=== PATIENT | female | born 1960 | race Caucasian/White ===

== ENCOUNTER 2019-07-01 05:34 | Inpatient (IN) ==
--- NOTE | 2019-06-18 14:48 | Anesthesiology Consultation ---
Date of Service June 18, 2019 Assessment & Plan (1) Encounter for pre-operative examination: Chart Review Chart Review: Acceptable Risk for Surgery (pending CXR results ), Pending: Refer to Additional Notes / Consult section (CXR ) and Patient NOT seen in Pre Admission Testing Prior to left TKA surgery- patient did have abnormal CXR/chest CT scan. Will update CXR prior to surgery to ensure lungs stable. Left TKA 02/19/18= Done under MAC with SAB- level L3-4- no issues noted per anesthesia record History Surgery Operation Date: 07/01/19 10:35 Proposed Procedures p Right Total Knee Arthroplasty - Jose Barrera DO Height/Weight Height: 5 ft 6.5 in Weight: 95.254 kg Allergies Allergy/AdvReac Type Severity Reaction Status Date / Time No Known Allergies Allergy Verified 06/18/19 13:15 Medications Home Medications Medication Instructions Recorded Confirmed Last Taken acetaminophen [Pain Reliever] 1,000 mg PO UD PRN 06/18/19 06/18/19 Unknown famotidine [Pepcid] 20 mg PO UD PRN 06/18/19 06/18/19 Unknown Past Medical History Medical History (Updated 06/18/19 @ 15:37 by Debbie García PA-C) Abnormal CXR Prior to 2018 TKA- seen by pulm- presumed emphysema and likely ILD Acid reflux INFREQUENT Hiatal hernia PT NOT SURE Osteoarthritis HX R KNEE INJECTION FEW MONTHS AGO Past Surgical History Surgical History History of carpal tunnel surgery LEFT History of total left knee replacement Hx of cholecystectomy WITH APPENDECTOMY Hx of unilateral salpingectomy RIGHT Hx of vaginal surgery Mass removed Social History Smoking Status: Former smoker Smoking cigarettes per day: 10 Do You Dip or Chew Tobacco: No Smoking End Date: 2 YRS AGO Hx Alcohol Use: No Alcohol type: wine alcohol intake frequency: holidays/special occasions only Hx Substance Use: No substance use type: does not use Testing Laboratory Results 06/16/19= WBC: 10.80 H/H: 15.9/48.5 PLATELETS: 475 UA: Small blood and esterase. URINE CULTURE: negative Electrocardiogram Date: 06/16/19 Findings: + NSR @ (91)
--- NOTE | 2019-06-24 13:47 | History & Physical Report ---
Date of Service June 24, 2019 date of surgery: 07-01-19 Assessment & Plan (1) Arthritis of right knee: Further care discussed with patient and at this point in time has failed conservative measures and would like to proceed with a right total knee replacement. Plan on discharge will be home with home health physical therapy. DVT prophalaxis with TEDs, SCDs and will also place on aspirin 81 mg p.o. b.i.d. for a month postop. Patient will have follow up appointment in our office two weeks post op for staple/suture removal and re-evaluation. Patient otherwise has no other questions or concerns. History of Present Illness Chief Complaint: Right knee pain Primary Care Provider: Justin Caro [place] is a 58 year old female who complains of Right knee pain, presents for pre-op evaluation prior to a Right total knee replacement by dr Barrera at [facility]. She complains of pain, crepitus, decreased range of motion, instability and stiffness in the right knee. she states that the symptoms have been chronic and non-traumatic. [place] states that the symptoms occur constantly with intermittent worsening. Currently the patient states that the symptoms are moderate-severe. The pain is described as aching, sharp and throbbing. The symptoms occur continuously. The symptoms are aggravated by ascending stairs, daily activities, first steps while awake walking. Prior NSAIDs include Aleve and IBU. She has been treated with previous visco injections and cortisone injections in the past without much relief, as well as participated in clinical trials. Allergies Allergy/AdvReac Type Severity Reaction Status Date / Time No Known Allergies Allergy Verified 06/18/19 13:15 Home Medications Home Medications Medication Instructions Recorded Confirmed Type acetaminophen [Pain Reliever] 1,000 mg PO UD PRN 06/18/19 06/18/19 History famotidine [Pepcid] 20 mg PO UD PRN 06/18/19 06/18/19 History Past Med/Surg History Medical History Abnormal CXR Prior to 2018 TKA- seen by pulm- presumed emphysema and likely ILD Acid reflux INFREQUENT Hiatal hernia PT NOT SURE Osteoarthritis HX R KNEE INJECTION FEW MONTHS AGO Surgical History History of carpal tunnel surgery LEFT History of total left knee replacement Hx of cholecystectomy WITH APPENDECTOMY Hx of unilateral salpingectomy RIGHT Hx of vaginal surgery Mass removed Family History (Updated 06/24/19 @ 13:44 by Sean Luciano PA-C) Unknown No family history of adverse response to anesthesia Social History Preferred Language: Yoruba Communication Ability: Effective 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 Beliefs That Will Affect Care: None Current Living Situation: Spouse Other Information That Helps Us Care for You: No Feels Safe at Home: Yes Smoking Status: Former smoker Cigarettes Per Day: 10 ; Do You Dip or Chew Tobacco: No ; Smoking End Date: 2 YRS AGO ; Hx Alcohol Use: No Hx Substance Use: No Review of Systems Review of Systems: All systems reviewed & are unremarkable except as noted in HPI & below Constitutional: no fever, no chills and no sweats Respiratory: no cough and no dyspnea Cardiovascular: no chest pain, no dyspnea and no orthopnea Gastrointestinal: no abdominal pain, no nausea and no vomiting Musculoskeletal: as per Subjective / HPI Physical Exam Physical Exam: Ht: 5ft 6in Wt: 95.3kg BP: 130/76 Pulse: 60 Constitutional: WD/WN, vitals as above no acute distress Respiratory: normal respiratory effort, lungs clear to auscultation no respiratory distress, no labored breathing and does not use accessory muscles Cardiovascular: RRR, no murmur, no edema Gastrointestinal (Abdomen): normal bowel sounds, soft, nontender, no hepatosplenomegaly Musculoskeletal: Knee: + knee abnormal to inspection (Right knee), + effusion (+1 effusion), + surgical incision (well healed portals), + limited ROM of knee (ROM 0/3/110), + knee ROM with crepitation, + joint line tenderness (medial joint line) and + Wiley's sign positive; no deformity, no skin erythema, no ecchymosis, no valgus laxity, no varus laxity, anterior drawer test negative, Adela's sign negative and pivot shift test negative Results & Data Diagnostic Findings right knee xray showing complete loss joint space medial compartment with overall varus alignment, there is also narrowing of the lateral compartment and patellofemoral joint. there is osteophyte formation, subchondral sclerosis noted, no loose bodies, no acute bony pathology. overall impression tricompartmental degenerative changes to the right knee.
[2019-07-01] MEDS ORDERED: LR 500ML BOLUS, THEN 15ML/HR IV SCH (06:00)
[2019-07-01] MEDS ORDERED: METOCLOPRAMIDE HCL 10 MG TABLET PO SCH (06:00)
[2019-07-01] MEDS ORDERED: ACETAMINOPHEN 500 MG TAB PO SCH (06:00)
[2019-07-01] MEDS ORDERED: FAMOTIDINE 20 MG TAB PO SCH (06:00)
[2019-07-01] MEDS ORDERED: dexAMETHasone 4 MG TAB PO SCH (06:00)
[2019-07-01] MEDS ORDERED: TRANEXAMIC ACID 1,000 MG **IV Intra-op IV SCH (06:00)
[2019-07-01] MEDS ORDERED: CeleBREX 200 MG CAP PO SCH (06:00)
[2019-07-01] MEDS ORDERED: CEFAZOLIN 2000MG 2,000 MG/15 ML SYR IV SCH (06:00)
[2019-07-01] MEDS ORDERED: ROPIVACAINE 0.5% HCL/PF 150 MG, BUPIVACAINE 0.5% MPF 30 ML, EPINEPHrine 30MG/30ML (OR U... INFIL SCH (06:00)
[2019-07-01] MEDS ORDERED: GABAPENTIN 600 MG DOSE PO SCH (06:00)
[2019-07-01] MEDS ORDERED: TRANEXAMIC ACID 1,000 MG **IV Pre-op IV SCH (06:00)
[2019-07-01] MEDS ORDERED: BUPIVACAINE/EPINEPHRINE 0.25% 1:200,000 30 ML VIAL ONE (06:23)
[2019-07-01] MEDS ORDERED: DEXAMETHASONE SOD INJ 4 MG/ML VIAL ONE ×2 (06:23→08:51)
[2019-07-01] MEDS ORDERED: BUPIVACAINE 0.5 % 5 MG/1 ML PF 10ML VIAL ONE (06:23)
[2019-07-01] MEDS ORDERED: PROPOFOL IV EMULSION 10 MG/ML 20 ML VIAL IV ONE (06:35)
[2019-07-01] MEDS ORDERED: MIDAZOLAM HCL 1 MG/ML 2ML VIAL ONE ×3 (06:35→07:44)
[2019-07-01] MEDS ORDERED: fentaNYL citrate 100 MCG/2 ML VIAL ONE ×2 (06:35→08:06)
[2019-07-01] MEDS ORDERED: LIDOCAINE HCL 2% 2 ML VIAL/AMP(20MG/ML) INFIL ONE (06:35)
[2019-07-01] MEDS ORDERED: ONDANSETRON INJ 2 MG/ML 2 ML VIAL ONE (06:35)
[2019-07-01] MEDS ORDERED: BACITRACIN INJ 50,000 UNIT VIAL ONE (07:02)
[2019-07-01] MEDS ORDERED: ORTHO JOINT ANESTHETIC ONE (07:02)
[2019-07-01] MEDS ORDERED: ONDANSETRON INJ 2 MG/ML 2 ML VIAL IV PRN ×2 (07:22→10:27)
[2019-07-01] MEDS ORDERED: ePHEDrine sulfate 50 MG/ML AMP IV PRN (07:22)
[2019-07-01] MEDS ORDERED: ATROPINE SULFATE 0.1 MG/ML 10ML SYR IV PRN (07:22)
[2019-07-01] MEDS ORDERED: fentaNYL citrate 100 MCG/2 ML VIAL IV PRN (07:22)
--- NOTE | 2019-07-01 07:33 | History & Physical Bridge Note ---
Date of Service July 01, 2019 History & Physical Bridge Note I have examined the patient, reviewed the History & Physical and in the interval since the performance of the History & Physical I have noted the following changes of clinical significance: no changes noted
--- NOTE | 2019-07-01 08:36 | Operative Report ---
Post Operative Report Pre & Post Diagnosis Operation Date: 07/01/19 07:15 Pre-Op Diagnosis: Osteoarthritis of Right Knee Post-Op Diagnosis: Osteoarthritis of Right Knee I identified the patient and participated in the time-out.: Yes Procedure Operation Date: 07/01/19 07:15 Actual Procedures p Right Total Knee Arthroplasty(Right) utilizing Capellan & NephCigital journey to non- block total knee arthroplasty size 5 femur 4 tibia 12 polyethylene 32 oval patella- Jose Barrera DO Surgeon Jose Barrera DO Retail Sales Manager ANNA Preston Estimated Blood Loss 5 Findings Consistent with Post-Op Diagnosis Patient presents with severe end-stage DJD varus alignment of the right knee no response to conservative management the patient has subchondral sclerosis marginal osteophytes [id number] eburnated bone moderate to large effusion varus alignment of the right knee after failing attempts at conservative management presents for total knee arthroplasty Specimens Bone and cartilage Drains Medium bore Hemovac Anesthesia Type General Regional Complications none Disposition Accompanied Patient To Recovery: No Disposition: Recovery Room Indications Patient presents after failed attempted conservative management clinic physical therapy anti-inflammatories relative rest activity modification corticosteroid injections Visco supplementation relative rest the above intraoperative findings no time surgery. Description of Procedure After proper prepping and draping of the Right lower extremity anterior midline incision was made over the region of the extensor extensor mechanism after meticulous hemostasis was obtained and maintained in subcutaneous tissues a medial parapatellar incision was made The patella was subluxed lateralward the medial lateral gutter were cleaned from any hypertrophic synovitis and scar tissue of the distal femoral block was placed and the distal femoral osteotomy cut was made subsequently the chamfers anterior and posterior osteotomy cuts were made utilizing the 4-in-1 block the tibia was subsequently subluxed anteriorward medial and ateral meniscal remnants were excised in their entirety remnants of the anterior and posterior cruciate ligaments were excised in their entirety excellent exposure of the proximal tibia was obtained the tibial osteotomy guide was placed on the proximal tibial osteotomy cut was made once again the knee was irrigated with copious amounts of sterile saline solution the patella was subsequently everted lateralward thickened scar tissue around the patella was removed the patella was subsequently cut utilizing a freehand technique and was drilled prepared for final preparation and placement of patella socially flexion-extension gaps were checked and the equal and symmetric trials were placed to the appropriate femoral and tibial trials with poly-spacer being placed for equal flexion and extension gaps and full range of motion including extension to 0 and flexion to 140 the trial components after having been taken to recovery range of motion was subsequently removed meticulous hemostasis was obtained and maintained subsequently a knee block injection of joint cocktail including ropivacaine 0.5% 150 mg. Bupivacaine 0.5% epinephrine 1-200,030 mL's toradol 30 mg dexamethasone 4 mg ketamine 10 mg clonidine 100 mi crograms normal saline solution 30 mg was infiltrated into the soft tissues of the posterior knee medial lateral gutters and periosteal synovium special attention was paid to protect neurovascular structures at all times subsequently trial components having been removed the knee was irrigated with sterile saline solution. debris was removed the proximal tibia was subsequently prepared and was made ready for the placement of the tibial component tibial component was also cemented and tamped into position the femoral component was subsequently placed and cemented in the position the patellar component was subsequently cemented in position because hemostasis once again obtained and maintained wound having been thoroughly irrigated with debridement and debridement lavage was performed as well as a medial parapatellar incision closed with #1 Vicryl in interrupted fashion subcutaneous was closed with #2 Vicryl skin was closed with skin clips. PA-C was necessary for prepping and drapping as well as wound closure of deep fascia Sub cutaneous tissue and skin and was necessary for the case. A sterile compressive dressing was placed patient was taken to recovery in stable condition of report dictated by Bruce I attest to the content of the Intraoperative Record and any orders documented therein. Any exceptions are noted below. I attest to the content of the Intraoperative Record and any orders documented therein. Any exceptions are noted below.
--- NOTE | 2019-07-01 09:45 | XRay Report ---
XR knee RT 1 or 2V routine CLINICAL HISTORY: Surgical Post Op DEGENERATIVE ARTHRITIS COMPARISON: January 2018 DISCUSSION: There are postsurgical changes of a total right knee arthroplasty. The femoral and tibial components appear well seated. There is an overlying surgical drain. There is gas present within the soft tissues consistent with recent surgery. The lateral joint compartment appears somewhat wider th an the medial joint compartment, perhaps secondary to patient positioning. IMPRESSION: Postsurgical changes of a total right knee arthroplasty. ACT 112: Negative or not required by law. Electronically signed by: Maxwell Burt M.D. 07/01/2019 9:43 AM
--- NOTE | 2019-07-01 10:19 | Anesthesiology Progress Note ---
Date of Service July 01, 2019 Anesthesia Post Procedure Vital Signs Vital Signs: Temp Pulse Pulse Resp BP BP Pulse Ox 07/01/19 09:45 37.1 C 89 16 135/79 98 07/01/19 09:35 37.1 C 91 H 16 142/88 H 98 07/01/19 09:25 88 16 124/82 98 07/01/19 09:18 37.9 C H 102 H 16 147/86 H 95 07/01/19 06:13 36.8 C 78 20 172/105 H 98 Transfer of Care Handoff Completed per policy Notes Mental Status: alert / awake / arousable Patient Amnestic to Procedure: Yes Nausea / Vomiting: adequately controlled Pain: adequately controlled Airway Patency, RR, SpO2: stable & adequate BP & HR: stable & adequate Hydration State: stable & adequate Anesthetic Complications: no major complications apparent
[2019-07-01] MEDS ORDERED: HYDROmorphone INJ 1 MG/ML SYRINGE IV PRN (10:27)
[2019-07-01] MEDS ORDERED: MAGNESIUM HYDROXIDE SUSP 30 ML UDC PO PRN (10:27)
[2019-07-01] MEDS ORDERED: bisacodyL 10 MG SUPP PR PRN (10:27)
[2019-07-01] MEDS ORDERED: METOCLOPRAMIDE HCL INJ 5 MG/ML 2 ML VIAL IV PRN (10:27)
[2019-07-01] MEDS ORDERED: NALOXONE HCL 0.4 MG/1 ML VIAL/CARP IV PRN (10:27)
[2019-07-01] MEDS: SODIUM CHLORIDE 0.9% 1000ML 1,000 ML IV SCH ×2 (11:00→21:47)
[2019-07-01] MEDS: KETOROLAC 30 MG/ML VIAL IV SCH ×3 (11:01→22:06)
[2019-07-01] MEDS: ACETAMINOPHEN 500 MG TAB PO SCH ×2 (14:18→21:48)
[2019-07-01] MEDS: CEFAZOLIN 2000MG 2,000 MG/15 ML SYR IV SCH ×2 (15:22→23:24)
[2019-07-01] MEDS: ASPIRIN 81 MG ECTAB PO SCH (21:47)
[2019-07-01] MEDS: DOCUSATE SODIUM 100 MG CAP PO SCH (21:48)
[2019-07-01] MEDS: SENNA 8.6 MG TAB PO SCH (21:48)
[2019-07-02] MEDS: ACETAMINOPHEN 500 MG TAB PO SCH ×3 (05:08→21:12)
[2019-07-02] MEDS: KETOROLAC 30 MG/ML VIAL IV SCH (05:08)
[2019-07-02 05:32] LABS: Hematocrit (blood only) 36.5 % (37-47); Mean Corpuscular Hemoglobin 30.7 pg (25-34); Mean Corpuscular Hgb Conc 32.9 g/dL (32-36); Mean Corpuscular Volume 93.4 fL (80-100); Mean Platelet Volume 9.7 fL (7.4-10.4); Platelet Count 386 K/uL (130-400); RDW Coefficient of Variation 13.6 % (11.5-14.5); RDW Standard Deviation 46.7 fL (36.4-46.3); Red Blood Count 3.91 M/uL (4.2-5.4); White Blood Count 18.24 K/uL (4.8-10.8)
[2019-07-02 06:09] LABS: Calcium 8.4 mg/dl (8.5-10.1); Creatinine Clr Calc Pharmacy 113.7 ml/min; Est GFR (African American) 111.8; Est GFR (Non-African American) 96.5
--- NOTE | 2019-07-02 07:23 | Anesthesiology Progress Note ---
Date of Service July 02, 2019 Anesthesia Post Procedure Vital Signs Vital Signs: Temp Pulse Pulse Pulse Pulse Resp BP 07/02/19 03:08 36.5 C 67 15 07/01/19 23:48 36.7 C 69 14 07/01/19 19:12 36.9 C 78 16 07/01/19 15:08 36.8 C 70 16 119/79 07/01/19 13:07 86 16 126/85 07/01/19 12:08 84 16 135/91 07/01/19 11:07 36.5 C 85 16 126/85 07/01/19 10:31 87 16 132/84 07/01/19 10:10 36.6 C 90 16 126/87 07/01/19 09:45 37.1 C 89 16 135/79 07/01/19 09:35 37.1 C 91 H 16 142/88 H 07/01/19 09:25 88 16 124/82 07/01/19 09:18 37.9 C H 102 H 16 147/86 H BP Pulse Ox 07/02/19 03:08 108/70 96 07/01/19 23:48 112/76 93 07/01/19 19:12 116/81 95 07/01/19 15:08 97 07/01/19 13:07 99 07/01/19 12:08 99 07/01/19 11:07 99 07/01/19 10:31 99 07/01/19 10:10 98 07/01/19 09:45 98 07/01/19 09:35 98 07/01/19 09:25 98 07/01/19 09:18 95 Pain Intensity Right Knee: Pain Intensity: 0 Notes Mental Status: alert / awake / arousable Patient Amnestic to Procedure: Yes Nausea / Vomiting: adequately controlled Pain: adequately controlled Airway Patency, RR, SpO2: stable & adequate BP & HR: stable & adequate Hydration State: stable & adequate Neuraxial Anesthesia: sensory block resolved Anesthetic Complications: no major complications apparent
[2019-07-02] MEDS: ASPIRIN 81 MG ECTAB PO SCH ×2 (07:42→21:12)
[2019-07-02] MEDS: DOCUSATE SODIUM 100 MG CAP PO SCH ×2 (07:42→21:12)
[2019-07-02] MEDS: MULTIVITAMIN TAB PO SCH (07:42)
[2019-07-02] MEDS: CeleBREX 200 MG CAP PO SCH ×2 (07:42→21:12)
--- NOTE | 2019-07-02 08:07 | Orthopedic Progress Note ---
Date of Service July 02, 2019 Assessment & Plan (1) Arthritis of right knee: Postop day 1 status post right total knee arthroplasty Leukocytosis-likely due to surgical stress or preoperative steroids. Patient currently asymptomatic. PT/OT protocols. Weightbearing as tolerated. DVT prophylaxis with aspirin p.o. twice daily, SCDs, YOUNG maddox Continue current pain regimen. DC planning-patient planning for home health services upon discharge. Admission and Anticipated Discharge Date Admission Date: July 01, 2019 Subjective Postop day 1 Patient currently sitting up in her chair at the bedside. No complaints this morning. Pain is controlled. She denies any shortness of breath, chest pain, lightheadedness. Physical Exam Physical Exam: Dressings are clean, dry, and intact. Calves are soft and nontender. Neurovascular is intact. Toes are mobile with good dorsiflexion and plantarflexion of the right ankle. Hemovac drainage was 100 mL from the previous shift. Results & Data ([facility]) Vital Signs (Past 12 Hours) Vital Signs Temp Pulse Resp BP Pulse Ox 07/02/19 03:08 36.5 C 67 15 108/70 96 07/01/19 23:48 36.7 C 69 14 112/76 93 Laboratory Results Laboratory Results WBC 18.24 K/uL (4.8-10.8) H 07/02/19 04:48 RBC 3.91 M/uL (4.2-5.4) L 07/02/19 04:48 Hgb 12.0 g/dL (12.0-16.0) 07/02/19 04:48 Hct 36.5 % (37-47) L 07/02/19 04:48 MCV 93.4 fL (80-100) 07/02/19 04:48 MCH 30.7 pg (25-34) 07/02/19 04:48 MCHC 32.9 g/dL (32-36) 07/02/19 04:48 RDW Std Deviation 46.7 fL (36.4-46.3) H 07/02/19 04:48 RDW Coeff of Anitra 13.6 % (11.5-14.5) 07/02/19 04:48 Plt Count 386 K/uL (130-400) 07/02/19 04:48 MPV 9.7 fL (7.4-10.4) 07/02/19 04:48 Sodium 141 mmol/L (136-145) 07/02/19 04:48 Potassium 4.0 mmol/L (3.5-5.1) 07/02/19 04:48 Chloride 111 mmol/L (98-107) H 07/02/19 04:48 Carbon Dioxide 26 mmol/L (21-32) 07/02/19 04:48 Anion Gap 4.0 (3-11) 07/02/19 04:48 BUN 17 mg/dl (7-18) 07/02/19 04:48 Creatinine 0.65 mg/dl (0.6-1.2) 07/02/19 04:48 Est Cr Clr Drug Dosing 113.7 ml/min 07/02/19 04:48 Est GFR ( Amer) 111.8 07/02/19 04:48 Est GFR (Non-Af Amer) 96.5 07/02/19 04:48 BUN/Creatinine Ratio 27.0 (10-20) H 07/02/19 04:48 Glucose 124 mg/dl (70-99) H 07/02/19 04:48 Calcium 8.4 mg/dl (8.5-10.1) L 07/02/19 04:48 Blood Type A Positive 07/01/19 06:02 Antibody Screen NEGATIVE 07/01/19 06:02
[2019-07-02] MEDS: SENNA 8.6 MG TAB PO SCH (21:13)
[2019-07-03] MEDS: ACETAMINOPHEN 500 MG TAB PO SCH (06:14)
[2019-07-03] MEDS: OXYCODONE HCL IR 5 MG TAB (IMMEDIATE RELEASE) PO PRN ×2 (06:17→10:14)
--- NOTE | 2019-07-03 07:19 | Orthopedic Progress Note ---
Date of Service July 03, 2019 Assessment & Plan (1) Arthritis of right knee: Postop day 2 status post right total knee arthroplasty PT/OT protocols. Weightbearing as tolerated. DVT prophylaxis with aspirin p.o. twice daily, SCDs, YOUNG maddox Continue current pain regimen. DC planning-patient planning for home health services upon discharge. Admission and Anticipated Discharge Date Admission Date: July 01, 2019 Subjective Postop day 2 Patient currently sitting up in her chair at the bedside. No complaints this morning. Pain is controlled. She denies any shortness of breath, chest pain, lightheadedness. Physical Exam Physical Exam: Vital Signs Temp 36.8 C 07/03/19 07:00 Pulse 82 07/03/19 07:00 Resp 16 07/03/19 07:00 BP 123/81 07/03/19 07:00 Pulse Ox 98 07/03/19 07:00 Intake & Output 07/02/19 07/03/19 07/03/19 18:59 06:59 18:59 Intake Total 1115 / 1690 575 / 1690 Output Total 701 / 827 126 / 827 Balance 414 / 863 449 / 863 Intake: Oral 1115 / 1690 575 / 1690 Output: Urine 550 / 551 1 / 551 Drain Output 150 / 275 125 / 275 Right Knee Hem ovac 150 / 275 125 / 275 # Bowel Movement s Other: # Unmeasured Voi ds 1 Constitutional: WD/WN, vitals as above no acute distress Musculoskeletal: right knee: NVDI, calf SNT, negative dona sign. DP palpable, able to wiggle toes/ankle movement without difficulty. Incision clean dry and intact. expected post-operative bruising noted. Results & Data ([facility]) Vital Signs (Past 12 Hours) Vital Signs Temp Pulse Resp BP BP Pulse Ox 07/03/19 07:00 36.8 C 82 16 123/81 98 07/02/19 23:10 36.8 C 75 15 110/69 96 Laboratory Results Laboratory Results WBC 18.24 K/uL (4.8-10.8) H 07/02/19 04:48 RBC 3.91 M/uL (4.2-5.4) L 07/02/19 04:48 Hgb 12.0 g/dL (12.0-16.0) 07/02/19 04:48 Hct 36.5 % (37-47) L 07/02/19 04:48 MCV 93.4 fL (80-100) 07/02/19 04:48 MCH 30.7 pg (25-34) 07/02/19 04:48 MCHC 32.9 g/dL (32-36) 07/02/19 04:48 RDW Std Deviation 46.7 fL (36.4-46.3) H 07/02/19 04:48 RDW Coeff of Anitra 13.6 % (11.5-14.5) 07/02/19 04:48 Plt Count 386 K/uL (130-400) 07/02/19 04:48 MPV 9.7 fL (7.4-10.4) 07/02/19 04:48 Sodium 141 mmol/L (136-145) 07/02/19 04:48 Potassium 4.0 mmol/L (3.5-5.1) 07/02/19 04:48 Chloride 111 mmol/L (98-107) H 07/02/19 04:48 Carbon Dioxide 26 mmol/L (21-32) 07/02/19 04:48 Anion Gap 4.0 (3-11) 07/02/19 04:48 BUN 17 mg/dl (7-18) 07/02/19 04:48 Creatinine 0.65 mg/dl (0.6-1.2) 07/02/19 04:48 Est Cr Clr Drug Dosing 113.7 ml/min 07/02/19 04:48 Est GFR ( Amer) 111.8 07/02/19 04:48 Est GFR (Non-Af Amer) 96.5 07/02/19 04:48 BUN/Creatinine Ratio 27.0 (10-20) H 07/02/19 04:48 Glucose 124 mg/dl (70-99) H 07/02/19 04:48 Calcium 8.4 mg/dl (8.5-10.1) L 07/02/19 04:48 Hepatitis C Ab Screen Neg (Neg) 07/02/19 04:48 Blood Type A Positive 07/01/19 06:02 Antibody Screen NEGATIVE 07/01/19 06:02
--- NOTE | 2019-07-03 07:25 | Discharge Summary ---
Date of Service July 03, 2019 Admission HPI Per Admitting Provider Kenya is a 58 year old female who complains of Right knee pain, presents for pre-op evaluation prior to a Right total knee replacement by dr Barrera at [facility]. She complains of pain, crepitus, decreased range of motion, instability and stiffness in the right knee. she states that the symptoms have been chronic and non-traumatic. Kenya states that the symptoms occur constantly with intermittent worsening. Currently the patient states that the symptoms are moderate-severe. The pain is described as aching, sharp and throbbing. The symptoms occur continuously. The symptoms are aggravated by ascending stairs, daily activities, first steps while awake walking. Prior NSAIDs include Aleve and IBU. She has been treated with previous visco injections and cortisone injections in the past without much relief, as well as participated in clinical trials. Principal Diagnosis right knee osteoarthritis Discharge Exam Vital Signs Temp 36.8 C 07/03/19 07:00 Pulse 82 07/03/19 07:00 Resp 16 07/03/19 07:00 BP 123/81 07/03/19 07:00 Pulse Ox 98 07/03/19 07:00 Intake & Output 07/02/19 07/03/19 07/03/19 18:59 06:59 18:59 Intake Total 1115 / 1690 575 / 1690 Output Total 701 / 827 126 / 827 Balance 414 / 863 449 / 863 Intake: Oral 1115 / 1690 575 / 1690 Output: Urine 550 / 551 1 / 551 Drain Output 150 / 275 125 / 275 Right Knee Hemovac 150 / 275 125 / 275 # Bowel Movements 1 / Other: # Unmeasured Voids 1 Constitutional WD/WN, vitals as above no acute distress Musculoskeletal right knee - NVDI, calf SNT, negative dona sign. DP palpable, able to wiggle toes/ankle movement without difficulty. Incision clean dry and intact. expected post-operative bruising noted. Discharge Data Allergies Allergy/AdvReac Type Severity Reaction Status Date / Time No Known Allergies Allergy Verified 07/01/19 06:12 Consultations 07/01/19 10:27 Consult Case Management - Discharge Planning Routine Procedures Performed Operation Date: 07/01/19 07:15 Actual Procedures p Right Total Knee Arthroplasty, Cemented(Right) - Jose Barrera, DO Ordered Studies 07/01/19 07:39 US - OR guided needle placemen Routine Hospital Course (1) Arthritis of right knee: Postop day 2 status post right total knee arthroplasty PT/OT protocols. Weightbearing as tolerated. DVT prophylaxis with aspirin p.o. twice daily, SCDs, YOUNG hose Continue current pain regimen. DC planning-patient planning for home health services upon discharge. Total Time Total Time Spent Total Time Spent (In Minutes): 20 Total Time Includes: Examination of the Patient, Discharge Planning and Medication Reconciliation Discharge Plan Discharge Items Patient Disposition: Home - Home Health Services Reason For Visit: Osteoarthritis of Right Knee Discharge Diagnosis: Right Total knee Replacement Condition on Discharge: Good Activity: Per Instructions section Weightbearing: Full weightbearing Non-emergency contact: Surgeon Call non-emergency contact if: you have any medication questions, your temperature is above 101, your wound has increased redness, your wound has increased drainage and your wound pain has increased Follow-up/Referrals: Justin Caro [Primary Care Provider] - Diet: Regular Addtl Attending Provider Instructions: ACTIVITY RECOMMENDATIONS: SELF CARE INSTRUCTIONS AFTER TOTAL KNEE REPLACEMENT A. You may need to continue a physical therapy program after discharge from the hospital. There are several options available to you. Your doctor will assist you in selecting the best one for you. 1. An out-patient facility 2 to 3 times a week for therapy or home therapy. 2. Continue working on all exercises taught to you in the hospital. Your goals should be to increase bending of your knee to 90 degrees and beyond and to fully straighten your knee. B. You may progress at your own pace from walking with a walker or crutches to a cane; then to no assistive devices. C. Make walking a part of your daily routine. Be up as much as comfortable with rest periods throughout the day. Rest with leg elevation is very important. Use the ice wrap frequently for the first 3-4 weeks. D. There are no restrictions on activities. You may ride in a car, shop, participate in indian trader and all social activities. E. Wear the long elastic stockings (YOUNG hose) 20 hours a day for 2 weeks after surgery. They can be removed several times a day for laundering and for a bath. F. You may shower, no tub baths until cleared by your doctor. SPECIAL CARE INSTRUCTIONS: VERY IMPORTANT TO READ AND REVIEW A. There are a few signs you need to watch for after you are home. Call [facility] if you notice any of the followin. Increased severe knee pain. Some pain is expected especially when you exercise. 2. Increased swelling in your leg or knee; pain or swelling of the calf muscle in either lower leg. 3. Any fluid drainage from the incision. 4. Shortness of breath or chest pain. B. Please call [facility] at if you have any concerns or questions about your operation or recovery. The doctor or his nurse will return your call promptly. C. You must take antibiotics before dental work, bladder, bowel or other surgery. Your doctor will provide you with a permanent care to carry describing this precaution. IMPORTANT: * REMEMBER TO TAKE ASPIRIN, 81 MG, TWICE DAILY FOR 4 WEEKS UNLESS OTHERWISE DIRECTED. THIS IS YOUR BLOOD THINNER. * HIGH RISK PATIENTS MAY BE PRESCRIBED A STRONGER BLOOD THINNER. THIS WILL BE PROVIDED AT DISCHARGE. * CALL IF INCREASED PAIN, REDNESS, DRAINAGE OR FEVER GREATER THAT 101. * WEAR YOUNG HOSE 20 HOURS PER DAY FOR 2 WEEKS. * DERMABOND Prineo- This is a mesh tape dressing that is covered with glue. It should remain in place until the incision is properly healed, usually 10-14 days. This dressing is designed to naturally slough off. You may trim the excess mesh tape as it peels off. Incision may be briefly wet in a shower. Dry immediately by blotting with a clean, dry towel. Do not bath or swim until instructed by your doctor. Do not scratch, rub, or pick at the dressing. Do not apply any topical ointments or lotions until dressing is completely removed and/or instructed by your doctor. There may be a small piece of suture material at one end of your incision. Do not pull or trim this. If it is bothersome or catching on clothing, you may cover it with a band-aid. IF INCISION IS LEAKING THROUGH DRESSING, CALL THE OFFICE . FOLLOW UP VISIT: If appointment is not already scheduled: Please call [facility] to make a follow-up appointment for 2 weeks after your surgery at . Pending Studies at Discharge: No Stand-Alone Forms: My [employer], Smoking Cessation Medications and DC Order Prescriptions: New celecoxib [Celebrex] 200 mg Capsule 200 mg PO BID 30 Days Qty: 60 RF: 0 aspirin 81 mg Tablet,Delayed Release (Dr/Ec) 81 mg PO BID 30 Days Qty: 60 RF: 0 acetaminophen 500 mg Tablet 1,000 mg PO Q8 21 Days Qty: 126 RF: 0 oxycodone 5 mg Tablet 5 - 10 mg PO Q6H PRN (Reason: pain) Qty: 30 RF: 0 docusate sodium 100 mg Capsule 100 mg PO BID 10 Days Qty: 20 RF: 0 cefadroxil 500 mg capsule 500 mg PO BID 10 Days Qty: 20 RF: 0 Continued famotidine [Pepcid] 20 mg Tablet 20 mg PO UD PRN (Reason: Acid Reflux) RF: 0 Discontinued acetaminophen [Pain Reliever] 500 mg tablet 1,000 mg PO UD PRN (Reason: Pain) RF: 0 Discharge Orders: Discharge Order (Routine); Ordered 07/03/19 Ordered By: Sean Luciano Admission Data Admit Date/Time: 07/01/19 09:18 Attending Provider: Jose Barrera Admit Provider: Jose Barrera Primary Care Provider: Justin Caro Other Providers: [facility],Home Healthcare
[2019-07-03] MEDS: ASPIRIN 81 MG ECTAB PO SCH (08:31)
[2019-07-03] MEDS: MULTIVITAMIN TAB PO SCH (08:31)
[2019-07-03] MEDS: CeleBREX 200 MG CAP PO SCH (08:32)
[2019-07-03] MEDS: DOCUSATE SODIUM 100 MG CAP PO SCH (08:32)
== END 2019-07-03 10:59 | disposition home health service (06) | DRG 470 ==
LOC: ASU 05:34 → 3E 09:18